=== PATIENT | male | born 1950 | race Caucasian/White ===

== ENCOUNTER 2018-08-17 00:52 | Day surgery (SDC) | payer MEDICARE, OTHER ==
[2018-08-17] VITALS (7 sets, daily range): BP systolic 95–143; BP diastolic 72–99
[~2018-08-17] VITALS: Ht 182.9 cm; Wt 68.9 kg
[~2018-08-17 00:52] MED LIST: ESOM10SU2 PO; OMEG-24 PO; OMEP40CA48 PO; VIT-9 PO
[2018-08-17] MEDS ORDERED: LIDOCAINE MPF 1% 5 ML VIAL ONE (10:30)
[2018-08-17] MEDS ORDERED: PROPOFOL EMUL(*) 10MG/ML 20 ML 20 ML ONE (10:30)
--- NOTE | 2018-08-17 12:00 | NUR ---
1200- RECEIVED SBAR REPORT FROM Shaista SHEPHERD RN, PT RESTING IN LL POSITION OXY MASK IN PLACE, PT MAINTAINING SATS, RESPIRATIONS AND AIRWAY, WILL CONTINUE TO MONITOR, CALL LIGHT WITHIN REACH 1204- PT EYES OPEN, DROWSY, PT REPOSITIONING HIMSELF IN BED, IV WAS SALINE LOCKED 1205- PT PLACED ON RA 1207- PT TOLERATING SIPS OF COFFEE 1215- PT TOLERATING CHEESE/CRACKERS AND COFFEE 1235- REVIEWED D/C INSTRUCTIONS WITH PT AND WANG WRAY 1239- SITTING VSS 1241- STANDING VSS 1242- PT AMBULATORY TO RESTROOM, PT NOTED TO HAVE STEADY GAIT 1245- PT DRESSED, REPORTS VOID X 1 1249- D/C IV WITH CATH INTACT, PRESSURE DRESSING APPLIED WITH GAUZE AND COBAND 1255- PT AMBULATORY TO [facility], ACCOMPANIED BY WANG WRAY AND LIZZY JENKINS
[2018-08-17] MEDS ORDERED: NORMOSOL R SOLN(*) 1000 ML BAG 1,000 ML IV PRN (12:10)
[2018-08-17] MEDS ORDERED: LIDOCAINE/SOD BICARB 8.4% SYR ID ONE (12:10)
== END 2018-08-17 12:55 | disposition home or self-care (01) ==
LOC: OR 00:52
PROVIDERS: ATTEND Family Medicine
DX: Z12.11 Encounter for screening for malignant neoplasm of colon (principal)
CPT/HCPCS: 00812; G0121; J2001; J2704